=== PATIENT | male | born 1950 | race Caucasian/White ===

== ENCOUNTER 2025-02-11 08:54 | Emergency (ER) | payer MEDICARE, OTHER, SELFPAY ==
[2025-02-11] VITALS (17 sets, daily range): BP systolic 133–154; BP diastolic 76–89; PULSE 58–70; RESP 14–21; TEMP 36.2; O2SAT 95–99; BMI 31.0
--- OUTSIDE RECORDS SUMMARY | 2025-02-11 08:57 | XMS_ITS | Clinical Summary ---
Author Organization [facility] Address [address] [place] [id number] Care Team Providers Care Community Relations Assistant Name Role Phone Alpa Lester MD Primary Care Provider Allergies No known active allergies Medications vitamin e 400 unit capsule Take 1 capsule by mouth once daily. 0 012 Active vitamin B complex (B-COMPLEX VITAMIN) tablet Take 1 tablet by mouth once daily. Active cholecalciferol (VITAMIN D3) 2,000 unit capsule Take 1 capsule by mouth once daily. 017 Active aspirin (ECOTRIN) 81 mg enteric coated tablet Take 1 tablet by mouth once daily with a meal. 0 017 Active varenicline (CHANTIX) 1 mg tabletIndication s:Tobacco abuse Take 1 mg by mouth two times daily with meals. 180 Tablet 023 Active indomethacin (INDOCIN) 50 mg capsuleIndicatio ns:Gout, unspecified cause, unspecified chronicity, unspecified site TAKE ONE CAPSULE BY MOUTH THREE TIMES DAILY WITH MEALS NEEDED FOR GOUT. 30 Capsule 1 024 Active lisinopriL (PRINIVIL; ZESTRIL) 20 mg tabletIndication s:Hypertension, unspecified type TAKE ONE TABLET BY MOUTH ONE TIME DAILY 90 Tablet 3 024 Active atenoloL (TENORMIN) 50 mg tabletIndication s:Hypertension, unspecified type Take 1 tablet (50mg) in the morning and 1/2 tablet (25mg) in the evening 135 Tablet 3 024 Active tirzepatide (Mounjaro) 2.5 mg/0.5 mL penIndications:O besity (BMI 30-39.9) Inject 2.5 mg subcutaneous once weekly. 2 mL 024 Active tirzepatide (Mounjaro) 5 mg/0.5 mL penIndications:O besity (BMI 30-39.9) Inject 5 mg subcutaneous once weekly. 2 mL 024 Active tirzepatide (Mounjaro) 7.5 mg/0.5 mL penIndications:O besity (BMI 30-39.9) Inject 7.5 mg subcutaneous once weekly. 2 mL 024 Active pen tirzepatide (Mounjaro) 10 mg/0.5 mL penIndications:O besity (BMI 30-39.9) Inject 10 mg subcutaneous once weekly. 2 mL 024 Active tirzepatide (Mounjaro) 12.5 mg/0.5 mL penIndications:O besity (BMI 30-39.9) Inject 12.5 mg subcutaneous once weekly. 2 mL 024 Active tirzepatide (Mounjaro) 15 mg/0.5 mL penIndications:O besity (BMI 30-39.9) Inject 15 mg subcutaneous once weekly. 2 mL 024 Active pregabalin (LYRICA) 100 mg capsuleIndicatio ns:Peripheral sensory neuropathy TAKE ONE CAPSULE BY MOUTH TWICE DAILY 180 Capsule 1 024 Active traZODone (DESYREL) 50 mg tabletIndication s:Insomnia, idiopathic TAKE ONE OR TWO TABLETS BY MOUTH AT BEDTIME 180 Tablet 024 Active pregabalin (LYRICA) 150 mg capsuleIndicatio ns:Peripheral sensory neuropathy TAKE ONE CAPSULE BY MOUTH TWICE DAILY 180 Capsule 1 024 Active atorvastatin 20 mg tabletIndication s:Elevated triglycerides with high cholesterol TAKE ONE TABLET BY MOUTH AT BEDTIME 90 Tablet 025 Active allopurinoL 300 mg tabletIndication s:Gout, unspecified cause, unspecified chronicity, unspecified site TAKE ONE TABLET BY MOUTH ONE TIME DAILY 90 Tablet 025 Active famotidine 20 mg tabletIndication s:Chronic GERD TAKE ONE TABLET BY MOUTH TWICE DAILY 180 Tablet 025 Active tamsulosin 0.4 mg capsuleIndicatio ns:Elevated triglycerides with high cholesterol Take 1 Capsule (0.4 mg) by mouth once daily after a meal 90 Capsule 025 Active tamsulosin (FLOMAX) 0.4 mg capsuleIndicatio ns:Elevated triglycerides with high cholesterol Take 1 Capsule (0.4 mg) by mouth once daily after a meal 90 Capsule 3 024 2024 Discontinued famotidine (PEPCID) 20 mg tabletIndication s:Chronic GERD TAKE ONE TABLET BY MOUTH TWICE DAILY 180 Tablet 3 024 2024 Discontinued allopurinoL (ZYLOPRIM) 300 mg tabletIndication s:Gout, unspecified cause, unspecified chronicity, unspecified site Take 1 Tablet (300 mg) by mouth once daily. 90 Tablet 3 024 2024 Discontinued atorvastatin (LIPITOR) 20 mg tabletIndication s:Elevated triglycerides with high cholesterol Take 1 Tablet (20 mg) by mouth at bedtime. 90 Tablet 3 024 2024 Discontinued Active Problems Problem Noted Date Diagnosed Date Abdominal aortic aneurysm, without rupture 12/01 BPH without urinary obstruction 12/01/2021 Stage 3a chronic kidney disease 12/01/2021 s/p ablation for afib 11/04/2015 12/16/2015 Gout, unspecified 03/16/2011 Diverticulosis of colon (without mention of hemo rrhage) 01/15/2009 Overview (01/15/2009): Colonoscopy 12/2008 diverticulosis repeat in 10 years Essential hypertension 08/27/2008 Overview (01/05/2010): Updated by system to replace inactive record Elevated triglycerides with high cholesterol Impaired fasting glucose Resolved Problems Problem Noted Date Diagnosed Date Resolved Date Screening for AAA (abdominal aortic aneurysm) 08/26/20 21 12/01/2021 Chronic atrial fibrillation 11/04/2015 12/01/2021 Tobacco use disorder 04/29/2014 016 Encounters Date Type Department Care Team Description 02/04/2025 4:00 PM CDT Ancillary Procedure [facility] [address] [place] [address] 02/04/2025 Travel 01/11/2025 Refill [facility] [address] [place] [address] Alpa Lester MD Refill Request (Atorvastatin, Allopurinol, Famotidine, Tamsulosin) 01/08/2025 Telephone [facility] [address] [place] [address] Alpa Lester MD Imaging from Last 3 Months Immunizations Immunization Administration Dates Next Due COVID-19 vaccine ([place] 30mcg/0.3mL) PF, MDV 01/15/2021,12/25/2020 Influenza, High-dose Quadriv alent Inactivated 08/26/2022 Influenza, IIV3 (Age >=3 years) 08/16/2015,08/07,08/08/2013 Influenza, IIV4 07/13/2016 Influenza, IIV4 (=>6mos) MDV 07/16/2020 Influenza, Inactivated IIV3 (Age 65+ Years) Preserv Free 08/26/2019,08/22/2018,06/22/2017 Pneumococcal Poly,23-Valent (Pneumovax) 08/26/20 19,04/29/2014 Pneumococcal conj 13-Valent (Prevnar 13) 017 Td (Age >=7 Years) 10/23/2003 Tdap 04/29/2014 Zoster (Zostavax-ZVL, live) 05/19/2013 Family History Medical History Relation Name Comments Heart Disease Brother 1 CABG about 50' s Other Brother 2 at 62 Cancer-prostate Father approx age 7 9 Heart Disease Mother [place] at 62 Cancer-colon Neg. 1 Diabetes Neg. 2 Stroke Neg. 3 Cancer Sister around 68 Anesthesia Problem No Family History Relation Name Status Comments Brother 1 Brother 2 Alive Father Mother Neg. 1 Neg. 2 Neg. 3 Sister Alive Social History Tobacco Use Types Packs/Day Years Used Date Smoking Tobacco: Former Cigarettes 1 40 0 10/23/1975 - 10/23/2015 Smokeless Tobacco: Never Tobacco Cessation:Counseling Given: No Alcohol Use Standard Drinks/Week Comments Yes 0 (1 standard drink = 0.6 oz pur e alcohol) moderate PHQ-2 Answer Date Recorded PHQ-2 TOTAL SCORE 0 02/15/2024 Social Connections Answer Date Recorded Do you often feel lonely or isolated from those around you? 0 08/21/2023 Financial Resource Strain Answer Date R ecorded Difficulty of Paying Living Expenses 3 08/21/2023 Difficulty of Paying Living Expenses Not on file 08/21/2023 Food Insecurity Answer Date Recorded Do you worry your food will run out before you are able to buy more? 1 08/21/2023 Transportation Needs Answer Date Record ed Does lack of transportation keep you from medica l appointments? 1 08/21/2023 Does lack of transportation keep you from work, meetings or getting things that you need? 1 08/21/2023 Housing Stability Answer Date Recorded What is your housing situation today? 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 Gender Identity Not on file Sexual Orientation Not on file Obstetrics History Last Filed Vital Signs Vital Sign Reading Time Taken Comments Blood Pressure 124/70 05/06/2024 3:19 PM CDT Pulse 52 05/06/2024 3:19 PM CDT Temperature 36.6 C (97.9 F) 04/14/2022 2:35 PM CDT Respiratory Rate 16 07/03/2018 10:1 7 AM CDT Oxygen Saturation 96% 05/06/2024 3:19 PM CDT Inhaled Oxygen Concentration - - Weight 110.4 kg (243 lb 6.4 oz) 05/06/2024 3:19 PM CDT Height 185.4 cm (6' 1) 02/15/2024 3:48 PM CDT Body Mass Index 32.11 02/15/2024 3:48 PM CDT Plan of Treatment Health Maintenance Due Date Last Done Comments Zoster (shingles) series for age 50+ (2 of 3) 07/14/2013 05/19/2013 Tetanus booster 04/29/2024 04/29/2014, 10/23/2003 COVID-19 vaccine series ( season) 2024 09/15/2021, 01/15/2021, 12/25/2020 BMI (ht and wt on same day) for age 18+ 02/14/2025 02/15/2024, 12/08/2022, 12/01/2021, Additional history exists Depression screening for age 12+ 02/14/2025 02/15/2024, 12/08/2022, 12/08/2022, Additional history exists Medicare Wellness for age 65+ 02/15/2025, 12/08/2022, 12/01/2021, Additional history exists Influenza Vaccine (Season Ended) 2025 07/16/2020, 08/26/2019, 08/22/2018, Additional history exists Low Dose CT (for lung CA) ag e 50-80 02/04/2026 02/04/2025, 12/22/2023, 12/20/2022 RSV vaccine for adults or (1 - 1-dose 75+ series) 2026 Lipids for age 45-75 02/14/2029 02/15/2024, 12/08/2022, 10/05/2021, Additional history exists Colonoscopy through age 75 07/07/203107/07, 07/07/2021, 01/15/2009 Tdap Completed 04/29/2014 Hepatitis C screening for ag e 18-79 Completed 05/01/2014 Pneumococcal series for age 50+ Completed 08/26/2019, 06/22/2017, 04/29/2014 AAA screening age 65-74 Completed 12/27/19 23, 12/20/2022, 08/23/2021 Procedures Procedure Name Priority Date/Time Associated Diagnosis Comments CT CHEST SCREENING LOW DOSE WO CONTRAST Routine 02/04/2025 4:15 PM CDT Encounter for screening for lung cancer Former smoker LIPID PANEL W REFLEX MEASURED LDL Routine 02/15/2024 4:41 PM CDT Hyperlipidemia, unspecified hyperlipidemia type US AORTA ILIACS IVC WITH DUPLEX Routine 12/26/2022 10:39 AM 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 Lung-RADS CATEGORY 2: BENIGN APPEARANCE OR BEHAVIOR: Continue annual screening with low-dose chest CT in 12 months. Please note that all CT scans at this facility use dose modulation, iterative reconstruction and/or weight-based dosing when appropriate to reduce radiation dose to as low as reasonably achievable. Dictated by: Jim Lind MD @02/06/2025 5:48:50 AM/CRL:malia Narrative 02/06/2025 7:40 AM CDT For Patients: As a result of the Century Cures Act, medical imaging exams and procedure reports are released immediately into your electronic medical record. You may view this report before your referring provider. If you have questions, please contact your health care provider. CT CHEST SCREENING LOW DOSE WITHOUT CONTRAST, 02/04/2025 INDICATION: Lung cancer screening. Significant smoking history. TECHNIQUE: Low-dose volumetric helical scanning of the thorax was performed without IV contrast material. Coronal and sagittal reconstructions were obtained. COMPARISON: Low-dose chest CT of 12/22/2023. FINDINGS: No new or enlarged pulmonary nodule is identified. Pre-existing micronodules are unchanged and benign. The lungs are clear. There is no significant airway abnormality. No pleural effusion is demonstrated. There is no mediastinal or hilar lymph adenopathy. The heart size is normal. Calcified coronary arterial plaque is demonstrated. Images of the upper abdomen are unremarkable. us Alpa Lester MD CT Final Result * (ABNORMAL) LIPID PANEL W REFLEX MEASURED LDL (02/15/2024 4:41 PM CDT) CHOLESTEROL,TOTAL 116 100 - 199 mg/dL 02/16/2024 2:15 PM CDT [facility] Comment: Cholesterol, Total Reference Ranges Desirable <200 mg/dL Borderline 200-239 mg/dL High >=240 mg/dL TRIGLYCERIDES 220(H) <150 mg/dL 02/16/2024 2:15 PM CDT [facility] HDL CHOLESTEROL 40(L) >40 mg/dL 2:15 PM CDT [facility] NON-HDL CHOLESTEROL 76 <145 mg/dl 02/16/2024 2:15 PM CDT [facility] CHOL/HDL RATIO 2.90 <4.50 02/16/2024 2:15 PM CDT [facility] LDL CHOLESTEROL 32 <=130 mg/dL 02/16/2024 2:15 PM CDT [facility] VLDL CHOLESTEROL 44(H) <=30 mg/dL 02/16/2024 2:15 PM CDT [facility] PROVIDER ORDERED STATUS RANDOM 02/16/2024 2:15 PM CDT [facility] Blood BLOOD SPECIMEN / Unknown Venipuncture / Unknown 02/15/2024 4:41 PM CDT 02/15/2024 4:42 PM CDT us Alpa Lester MD CHEMISTRY Final Result Performing Organization Address City/State/[facility] Co de Phone Number [facility] [address] [place] [id number], [place] * US AORTA ILIACS IVC WITH DUPLEX (12/26/2022 10:39 AM ENTERPRISE SERVICES MANAGER) Anatomical Region Laterality Modality AORTA, Abdomen Ultrasound 12/26/2022 9:58 AM ENTERPRISE SERVICES MANAGER Narrative 12/26/2022 2:01 PM ENTERPRISE SERVICES MANAGER VASCULAR ULTRASOUND REPORT RODNEY YU : 1950 Study Date: 12/26/2022 9:58:00 AM Age: 72 years Tech: PMK Gender: M Referring MD: ALPA LESTER Site: [facility] Study performed: Aorta Indication for study: Follow-up known AAA. Study Quality: Good TECHNIQUE: The abdominal aorta and iliac arteries were examined with duplex ultrasound, color-flow and spectral Doppler. Bypass grafts and/or stents if present are evaluated per exam protocol. Vessel size, peak systolic velocity (PSV) and velocity ratios if applicable, were obtained and documented at sites per exam protocol. IMPRESSION: 1. Aorta is diffusely calcified which limits evaluation. 2. Infrarenal abdominal aortic aneurysm measuring 4 x 4.3 cm, previously 4.3 x 3.8 cm on CTA dated December 20, 2022. This difference is likely secondary to differences in technique given the short interval. 3. Ectasia of the right common iliac artery measuring 1.9 x 1.9 cm. COMPARISON: Compared to prior study 12-20-22, CTA 4.3x3.8cm. FINDINGS: Aorta is diffusely calcified. Abnormal right common iliac. Ectatic right DAREN 1.9x1.9cm Dst left DAREN and prox EIA obscured by gas. MEASUREMENTS: + +--------+-------+ +---------+ TRV (cm) AP (cm) PSV (cm/s) Phasicity + +--------+-------+ +---------+ Suprarenal aorta 2.80 2.91 91 triphasic + +--------+-------+ +---------+ Juxtarenal aorta 2.21 2.32 84 biphasic + +--------+-------+ +---------+ Infrarenal aorta 3.99 4.33 37 triphasic + +--------+-------+ +---------+ Right common iliac 1.87 1.89 39 triphasic + +--------+-------+ +---------+ Left common iliac 1.35 1.13 122 biphasic + +--------+-------+ +---------+ Elizabeth Rubalcava MD. [employer] Electronically signed on 12/26/2022 2:01:15 PM This study was performed and interpreted by a service accredited by the Intersocietal Accreditation Commission (IAC/Vascular), www.intersocietal.org/vascular Report generated by [facility]. Final Procedure Note Elizabeth Rubalcava MD - 12/26/2022 VASCULAR ULTRASOUND REPORT RODNEY YU : 1950 Study Date: 12/26/2022 9:58:00 AM Age: 72 years Tech: PMK Gender: M Referring MD: ALPA LESTER Site: [facility] Study performed: Aorta Indication for study: Follow-up known AAA. Study Quality: Good TECHNIQUE: The abdominal aorta and iliac arteries were examined with duplexultrasound, color-flow and spectral Doppler. Bypass grafts and/or stentsif present are evaluated per exam protocol. Vessel size, peak systolicvelocity (PSV) and velocity ratios if applicable, were obtained anddocumented at sites per exam protocol. IMPRESSION: 1. Aorta is diffusely calcified which limits evaluation. 2. Infrarenal abdominal aortic aneurysm measuring 4 x 4.3 cm, previously4.3 x 3.8 cm on CTA dated December 20, 2022. This difference is likelysecondary to differences in technique given the short interval. 3. Ectasia of the right common iliac artery measuring 1.9 x 1.9 cm. COMPARISON: Compared to prior study 12-20-22, CTA 4.3x3.8cm. FINDINGS: Aorta is diffusely calcified. Abnormal right common iliac. Ectatic rightCIA 1.9x1.9cm Dst left DAREN and prox EIA obscured by gas. MEASUREMENTS: + +--------+-------+ +---------+ TRV (cm) AP (cm) PSV (cm/s) Phasicity + +--------+-------+ +---------+ Suprarenal aorta 2.80 2.91 91 triphasic + +--------+-------+ +---------+ Juxtarenal aorta 2.21 2.32 84 biphasic + +--------+-------+ +---------+ Infrarenal aorta 3.99 4.33 37 triphasic + +--------+-------+ +---------+ Right common iliac 1.87 1.89 39 triphasic + +--------+-------+ +---------+ Left common iliac 1.35 1.13 122 biphasic + +--------+-------+ +---------+ Elizabeth Rubalcava MD. [employer] Electronically signed on 12/26/2022 2:01:15 PM This study was performed and interpreted by a service accredited by theIntersocietal Accreditation Commission (IAC/Vascular),www.intersocietal.org/vascular Report generated by [facility]. Final us Alpa Lester MD Final Result * COLONOSCOPY (07/07/2021 10:23 AM CDT) 07/07/2021 10:2 3 AM CDT Narrative Transcriptions Jeovanny Mckeon MD - 07/07/2021 11:16 AM CDT Patient Name: Rodney Yu Procedure Date: 07/07/2021 Gender: Male Date of : 1950 Admit Type: Outpatient Procedure: Colonoscopy Proceduralist: Jeovanny Mckeon MD , Perlita Owens (Nurse) Indications/Pre-Op Diagnosis: Screening for colorectal malignant neoplasm, Last colonoscopy: December 2008 Medications: Fentanyl 100 micrograms IV, Midazolam 4 mgIV, The level of sedation administered wasmoderate Procedure Description: The patient had risks, benefits and alternatives explained to andgave informed consent. The patient had a stable cardiopulmonary status and judged an adequate candidate for conscious sedation. The Colonoscope was passed through the anus and advanced to thececum, identified by appendiceal orifice and ileocecal valve. Thecolonoscopy was performed without difficulty. The patient tolerated the procedure well. The quality of the bowel preparation was not adequate toidentify polyps 6 mm and larger in size. The ileocecal valve, appendiceal orifice, and rectum were photographed. Complications: No immediate complications. Estimated Blood Loss & Specimen: Estimated blood loss: none. Specimen collected - None Findings: The perianal and digital rectal examinations were normal. A large amount of solid stool was found in the entire colon,precluding visualization. Lavage of the area was performed using a large amountof sterile water, resulting in incomplete clearance with continued poor visualization. Scattered small and large-mouthed diverticula were found in theentire colon. The exam was otherwise without abnormality. Impressions/Post-Op Diagnosis: - Preparation of the colon was inadequate. - Stool in the entire examined colon. - Moderate diverticulosis in the entire examined colon. - The examination was otherwise normal. - No specimens collected. Recommendation: - Patient has a contact number available for emergencies. The signsand symptoms of potential delayed complications were discussed with the patient. Return to normal activities tomorrow. Written discharge instructions were provided to the patient. - Resume previous diet. - Continue present medications. - Repeat colonoscopy at appointment to be scheduled because the bowel preparation was suboptimal. - For future colonoscopy the patient will require an extended preparation, Peg 8L. If there are any questions, please contact the electronics engineer. Moderate Sedation: Moderate (conscious) sedation was administered by the endoscopy nurse and supervised by the endoscopist. The following parameters were monitored: oxygen saturation, heart rate, respiratory rate, blood pressure, adequacy of pulmonary ventilation and reponse to care. Please refer to the patient's medical record flowsheets and nursing notes for moderate sedation details. Total physician intraservice time was 17 minutes. Jeovanny Mckeon MD 07/07/2021 11:16:22 AM This report has been signed electronically. Note Initiated On: 07/07/2021 10:23 AM Procedure Code(s): --- Professional --- 40477, Colonoscopy, flexible; diagnostic, including collection of specimen(s) bybrushing or washing, when performed (separateprocedure) Diagnosis Code(s): --- Professional --- Z12.11, Encounter for screening formalignant neoplasm of colon K57.30, Diverticulosis of large intestine without perforation or abscess withoutbleeding CPT copyright 2020 [employer]. All rights reserved. The codes documented in this report are preliminary and upon certified medical records coder reviewmay be revised to meet current compliance requirements. Scope In: 10:54:29 AM Scope Withdrawal Time 0 hours 7 minutes 4 seconds Scope Out: 11:09:34 AM us Jeovanny Mckeon MD PROCEDURE ORD Final Res ult * ANTI HCV [41810.2] (05/01/2014 7:15 AM CDT) HEPATITIS C ANTIBODY Non-Reacti ve Non-Reacti ve 05/01/2014 3:28 PM CDT [facility] Blood specimen (specimen) BLOOD SPECIMEN / Unknown Venipuncture / Unknown 05/01/2014 7:15 AM CDT 05/01/2014 7:15 AM CDT Narrative [facility] - 05/01/2014 3:28 PM CDT Antibodies to HCV not detected; does not exclude the possibility of exposure to HCV. us Alpa Lester MD SEND OUTS Final Result [facility] [address] [place] [address], from Last 3 Months or Most Recently Relevant to Health Maintenance Insurance [employer] MR PB ONLY MEDICARE PART B HB ONLY MEDICA PRIME SOLUTION HB MEDICARE PART A HB ONLY Advance Directives Documents on File Type Date Recorded Patient Educational Paraprofessional Expl anation Healthcare Directive 05/07/2024 11:12 AM * Full Code (Latest Code Status on File) Date Activated Date Inactivated Comments 12/23/2015 7:04 AM 12/23/2015 12:23 PM * Full Code Date Activated Date Inactivated Comments 11/04/2015 8:11 AM 11/05/2015 12:19 PM * Full Code Date Activated Date Inactivated Comments 07/06/2015 7:09 AM 07/06/2015 2:52 PM Care Teams Community Relations Assistant Relationship Specialty Start Date End Date Alpa Lester MD [address] [place] [address] [facility] - General 04/11/06
--- OUTSIDE RECORDS SUMMARY | 2025-02-11 08:57 | XMS_ITS | Clinical Summary ---
Author Organization [facility] Address [address] , [address] [place] [address] Phone Care Team Providers Care Behavioral Health Professional Name Role Phone Brittany Yu Unavailable Conditions or Problems Problem Name Problem Code Onset Date Status Entry Date Provider Comment Standard Description Annotate VERTIGO 388337086 (SNOMED CT) Resolved Alex High MD Vertigo Neuropathic pain 247816844 (SNOMED CT) Active Alex High MD Neuropathic pain Neuropathy 211913217 (SNOMED CT) Active Alex High MD Neuropathy VERTIGO, BENIGN PAROXYSMAL POSITION 102233857 (SNOMED CT) Active Charanjit Roach MD Benign paroxysmal positional vertigo HEARING LOSS, NOS 62052456 (SNOMED CT) Active Charanjit Roach MD Hearing loss VERTIGO 418420506 (SNOMED CT) Removed Charanjit Roach MD Vertigo Medications Medication Instructions Start Date Stop Date Generic Name [facility] Provider NORTRIPTYLINE HCL 10 MG CAPS 2 capsule by mouth as directed : 2 caps or 20 mg per night; then increase by 1 cap or 10 mg/night every 2 weeks until maximum 7 caps or 70 mg/night or until pain controlled 12/10 nortriptyline [id number] Alex High MD NORTRIPTYLINE HCL 10 MG CAPS Take 6 capsule by mouth every night at bedtime maximum 7 caps or 70 mg/night nortriptyline 32838854918 Alex High MD VARENICLINE TARTRATE 1 MG TABS Take 1 mg by mouth twice a day 0 varenicline 18085021603 Alex High MD MOUNJARO 7.5 MG/0.5ML SOAJ Inject 7.5 mg subcutaneously once a week 0 tirzepatide 47104878890 Alex High MD ALLOPURINOL 300 MG TABS Take 1 tablet by mouth once a day allopurinol 31511017564 Alex High MD vitamin e 400 unit capsule Take 1 capsule by mouth once a day 0 vitamin e 400 unit capsule Alex High MD vitamin B complex (B-COMPLEX VITAMIN) tablet Take 1 tablet by mouth once a day B-COMPLEX VITAMIN Alex High MD MOUNJARO 2.5 MG/0.5ML SOAJ Inject 2.5 mg subcutaneously once a week 0 tirzepatide 08247617469 Alex High MD MOUNJARO 10 MG/0.5ML SOAJ Inject 10 mg subcutaneously once a week 0 tirzepatide 40275585107 Alex High MD TAMSULOSIN HCL 0.4 MG CAPS Take 1 capsule by mouth once a day tamsulosin 84568642631 Alex High MD LISINOPRIL 20 MG TABS Take 1 tablet by mouth once a day lisinopril 82984362803 Alex High MD MOUNJARO 5 MG/0.5ML SOAJ Inject 5 mg subcutaneously once a week 0 tirzepatide 48144589144 Alex High MD regadenoson (LEXISCAN) injection 0.4 mg 0.4 mg intravenously LEXISCAN Alex High MD ASPIRIN LOW DOSE 81 MG TBEC Take 1 tablet by mouth once a day aspirin 16611685255 Alex High MD INDOMETHACIN 50 MG CAPS Take 1 capsule by mouth three times a day as needed 0/09 indomethacin 03386704712 Alex High MD FAMOTIDINE 20 MG TABS Take 1 tablet by mouth twice a day famotidine 02225176034 Alex High MD ATORVASTATIN CALCIUM 20 MG TABS Take 1 tablet by mouth every night atorvastatin 16331426435 Alex High MD MECLIZINE HCL (MECLIZINE HCL) 25 MG TABS twice a day as needed 0 MECLIZINE HCL Alex High MD PREGABALIN 150 MG CAPS Take 1 capsule by mouth twice a day pregabalin 83744153336 Alex High MD MOUNJARO 15 MG/0.5ML SOAJ Inject 15 mg subcutaneously once a week 0/ tirzepatide 10351482293 Alex High MD PREGABALIN 100 MG CAPS Take 1 capsule by mouth twice a day 0 pregabalin 31920334329 Alex High MD cholecalciferol (VITAMIN D3) 2,000 unit capsule Take 1 capsule by mouth once a day VITAMIN D3 Alex High MD MOUNJARO 12.5 MG/0.5ML SOAJ Inject 12.5 mg subcutaneously once a week 0/09 tirzepatide 84842662326 Alex High MD ALPHA-LIPOIC ACID 600 MG TABS 1/2 tablet by mouth twice a day alpha lipoic acid 41557306259 Alex High MD PREGABALIN 100 MG CAPS Take 1 capsule by mouth every night at bedtime as needed for pain at night with the current 150 mg 2x per day pregabalin 15054358358 Alex High MD NORTRIPTYLINE HCL 10 MG CAPS 2 capsule by mouth as directed : 2 caps or 20 mg per night; then increase by 1 cap or 10 mg/night every 2 weeks until maximum 7 caps or 70 mg/night or until pain controlled 12/10 nortriptyline 78081772984 Alex High MD vitamin e 400 unit capsule Take 1 capsule by mouth once daily. vitamin e 400 unit capsule QIEUSER QIEUSER vitamin B complex (B-COMPLEX VITAMIN) tablet Take 1 tablet by mouth once daily. B-COMPLEX VITAMIN QIEUSER QIEUSER VARENICLINE TARTRATE 1 MG TABS Take 1 mg by mouth two times daily with meals. 0 varenicline 67908855183 QIEUSER QIEUSER TRAZODONE HCL 50 MG TABS TAKE ONE OR TWO TABLETS BY MOUTH AT BEDTIME trazodone 31512668444 QIEUSER QIEUSER MOUNJARO 7.5 MG/0.5ML SOAJ Inject 7.5 mg subcutaneous once weekly. 11/28 tirzepatide 28806043401 QIEUSER QIEUSER MOUNJARO 5 MG/0.5ML SOAJ Inject 5 mg subcutaneous once weekly. 11/28 tirzepatide 59813548064 QIEUSER QIEUSER MOUNJARO 2.5 MG/0.5ML SOAJ Inject 2.5 mg subcutaneous once weekly. 2 tirzepatide 21415754823 QIEUSER QIEUSER MOUNJARO 15 MG/0.5ML SOAJ Inject 15 mg subcutaneous once weekly. 11/28 tirzepatide 18079743979 QIEUSER QIEUSER MOUNJARO 12.5 MG/0.5ML SOAJ Inject 12.5 mg subcutaneous once weekly. 11/28 tirzepatide 90891395651 QIEUSER QIEUSER TAMSULOSIN HCL 0.4 MG CAPS Take 1 Capsule (0.4 mg) by mouth once daily after a meal 0 tamsulosin 65026240721 QIEUSER QIEUSER regadenoson (LEXISCAN) injection 0.4 mg 0.4 mg Intravenous LEXISCAN QIEUSER QIEUSER PREGABALIN 150 MG CAPS Take 1 Capsule (150 mg) by mouth two times daily. 0/ pregabalin 20739878717 QIEUSER QIEUSER PREGABALIN 100 MG CAPS TAKE ONE CAPSULE BY MOUTH TWICE DAILY 0/ pregabalin 22781747685 QIEUSER QIEUSER MOUNJARO 10 MG/0.5ML SOAJ Inject 10 mg subcutaneous once weekly. 2/06 tirzepatide 66244433406 QIEUSER QIEUSER LISINOPRIL 20 MG TABS TAKE ONE TABLET BY MOUTH ONE TIME DAILY 0 lisinopril 70164105718 QIEUSER QIEUSER INDOMETHACIN 50 MG CAPS TAKE ONE CAPSULE BY MOUTH THREE TIMES DAILY WITH MEALS NEEDED FOR GOUT. 0/ indomethacin 02439781393 QIEUSER QIEUSER FAMOTIDINE 20 MG TABS TAKE ONE TABLET BY MOUTH TWICE DAILY 0/09 famotidine 73945580600 QIEUSER QIEUSER cholecalciferol (VITAMIN D3) 2,000 unit capsule Take 1 capsule by mouth once daily. 0/09 VITAMIN D3 QIEUSER QIEUSER ATORVASTATIN CALCIUM 20 MG TABS Take 1 Tablet (20 mg) by mouth at bedtime. 0/09 atorvastatin 04492033283 QIEUSER QIEUSER ATENOLOL 50 MG TABS Take 1 tablet (50mg) in the morning and 1/2 tablet (25mg) in the evening atenolol 03219171580 QIEUSER QIEUSER ASPIRIN LOW DOSE 81 MG TBEC Take 1 tablet by mouth once daily with a meal. 0/09 aspirin 62545143464 QIEUSER QIEUSER ALLOPURINOL 300 MG TABS Take 1 Tablet (300 mg) by mouth once daily. 0/09 allopurinol 76188635586 QIEUSER QIEUSER MECLIZINE HCL 25 MG TABS bid prn 0/09 MECLIZINE HCL 48105356252 Charanjit Roach MD Medications Administered No information available. Allergies, Adverse Reactions, Alerts Allergy Name Reaction Description Start Date Severity Statu s Provider No known active allergies No known active allergies Mild Active Reza Bedolla Results Date Name Value Unit Range Flag Description Internal Other: Verbal Autho rization/Emergency Contact - OBS VERBAL_EMER Done Verbal au thorization and emergency contact Internal Other: Authorizatio n - OBS [email or web address] Yes Authoriza tion: Release of Information - Authorize [facility] - Payment and Healthcare Operations ROIAUTHOTHER Yes Authoriz ation: Release of Information - Authorize Others/Insurance - Payment and Healthcare Operations HIECONSENT Yes Consent To Release information to the Health Information Exchange (HIE) [email or web address] Yes Authorizat ion: Authorization for [facility] to leave messages, voicemail, send text messages, send emails AUTHRELHCARE Yes Authoriz ation: Release/Retrieval of Information to/from Healthcare Facilities, Pharmacy Benefit Payers and Providers AUTHPRIVPRAC Yes Authoriz ation: Notice of privacy practices AUTHBENEFIT Yes Authoriza tion: Assignment of Benefits and Payment Agreement Office Visit: Office Visit f ax MEDS REVIEW Done Documenta tion of current medications (procedure) Plan of Care Type Date Detail Appointment 03:00 PM Ellie Vann PA-C, [address] [facility], [address], [place], [address], Pending order Follow up with N eurologist or [facility] Pending order Follow up with N eurologist or [facility] Pending order Follow up with N eurologist or [facility] Pending order Immunofixation S matteo w/Electrophoresis Pending order Vitamin B12 Pending order Methylmalonic Ac id Serum (MMA) Pending order Vitamin B6 (Pyri doxine) - fasting after midnight Pending order Patient Instruct ions Pending order Follow up with N eurologist or [facility] Pending order EMG bilateral lo w ext Pending order EMG bilateral lo w ext Pending Order exclud ed from report: Pending order Patient Instruct ions Pending order Patient Instruct ions Procedures Code Procedure Name Date Entry Date ORDERS Patient Instructions ORDERS EMG bilateral low ext CPT-44439 Nerve Conduction 7-8 studies CPT-90811 EMG with NCS (5+ muscles) - 1 limb CPT-99284 EMG with NCS (4 or fewer muscles) - 1 lopez b ORDERS Patient Instructions [facility]-[id number] Documentation of current medicatio ns Vital Signs Date Name Value Unit Description Heart Rate 68 /min pulse rate Immunizations No information available. Advance Directives No information available.
--- OUTSIDE RECORDS SUMMARY | 2025-02-11 08:57 | XMS_ITS ---
Author Organization [facility] Address [address] [place] [address] , [address] [place] [address] Phone Care Team Providers Care White Lead Filterer Name Role Phone Soo DORMAN, Ellie Myers Unavailable Conditions or Problems No information available. Medications No information available. Medications Administered No information available. Allergies, Adverse Reactions, Alerts No information available. Results Date Name Value Unit Range Flag Description Office Visit: Office Visit f ax MEDS REVIEW Done Documenta tion of current medications (procedure) Plan of Care Type Date Detail Appointment 03:00 PM Ellie Vann PA-C, [address] [facility], [address], [place], [address], Pending order Follow up with N eurologist or [facility] Pending order Follow up with N eurologist or [facility] Pending order Immunofixation S matteo w/Electrophoresis Pending order Vitamin B12 Pending order Methylmalonic Ac id Serum (MMA) Pending order Vitamin B6 (Pyri doxine) - fasting after midnight Pending order Patient Instruct ions Procedures Code Procedure Name Date Entry Date ORDERS Patient Instructions Vital Signs No information available. Immunizations No information available. Advance Directives No information available.
--- NOTE | 2025-02-11 09:15 | CRLHL7_ITS ---
For Patients: As a result of the Cures Act, medical imaging exams and procedure reports are released immediately into your electronic medical record. You may view this report before your referring provider. If you have questions, please contact your health care provider. INDICATION : Chest pain TECHNIQUE : 2View chest IMPRESSION : No overall change allowing for technique from a prior exam April 2015. Mildly prominent lung markings. These are likely stable and accentuated by technique. Normal heart size and vascular pattern. Mild increased central perihilar bronchial thickening is present. This can be seen in the setting of chronic reactive airway disease No consolidation or pleural fluid, no signs of a pneumothorax. Overlying electrocardiographic monitor leads. Dictated by Casey Bradford MD @ 02/11/2025 9:47:39 AM (Electronically Signed)
--- NOTE | 2025-02-11 09:15 | ED_ITS ---
HPI - Chest Pain General Date Seen: 02/11/25 Chief Complaint: Chest Pain Stated Complaint: chest pains Time Seen by Provider: 02/11/25 08:57 Source: patient Mode of arrival: ambulatory Limitations: no limitations History of Present Illness HPI narrative: Patient is a 74-year-old male presenting to the emergency department for chest pain. He states he woke up this morning with this chest pain. His across his mid sternal region. Denies having pain like this before. States that the dull ache that is worse when takes a deep breath. States the dyspnea improves when he lays down and worse when he sits up for work. Does state he had pneumonia while he was in [place] 2 weeks ago. Noticed with some mild lower extremity swelling with left worse than right for the past 6 or so months. Has never had a blood clot before. No history of heart disease. Denies fevers, chills, headache, weakness, numbness, abdominal pain, nausea. Does state he feels slightly lightheaded like his eyes just want to fall sleep. Not aware of any sick contacts. Pain does not radiate to his arms or neck. No other concerns noted. Related Data Home Medications ?Medication ?Instructions ?Recorded ?Confirmed allopurinol 300 mg tablet 300 mg PO 08/24/22 08/24/22 aspirin 81 mg tablet,delayed 81 mg PO QDAY 08/24/22 08/24/22 release atenolol 50 mg tablet 50 mg PO 08/24/22 08/24/22 atorvastatin 20 mg tablet 20 mg PO 08/24/22 08/24/22 famotidine 20 mg tablet 20 mg PO 08/24/22 08/24/22 gabapentin 100 mg capsule 400 mg PO BID 08/24/22 02/11/25 lisinopril 20 mg tablet 20 mg PO 08/24/22 08/24/22 tamsulosin 0.4 mg capsule mg PO 08/24/22 08/24/22 trazodone 50 mg tablet 50 mg PO 08/24/22 08/24/22 Allergies Allergy/AdvReac Type Severity Reaction Status Date / Time No Known Drug Allergies Allergy Verified 08/24/22 13:41 Review of Systems Status of ROS Reports: 10 or more systems reviewed and unremarkable except as noted in History and below [facility] Medical History Hypertension ?I10 - Essential (primary) hypertension (ICD-10) Surgical History Hx of appendectomy ?Z90.49 - Acquired absence of other specified parts of digestive tract (ICD- 10) History of cholecystectomy ?Z90.49 - Acquired absence of other specified parts of digestive tract (ICD- 10) Social History Smoking Status: Former smoker How often do you have a drink containing alcohol: 2-3 times a week AUDIT-C Alcohol total score: 3 Non-prescribed substance use: denies use Exam Narrative Exam Narrative: Const: Well-nourished, Well-developed, in mild distress Eyes: PERRL, no conjunctival injection, and symmetrical lids HENT: Atraumatic external nose and ears. Moist mucous membranes. Neck: Symmetric, trachea midline, No thyromegaly. CVS: RRR, No murmurs or gallops. Peripheral pulses 2+ and equal in all extremities, maybe some slight lower extremity edema left worse than right RESP: Unlabored respiratory effort. Clear to auscultation bilaterally. GI: Nontender/Nondistended, No rebound or guarding. MSK:Extremities w/o deformity, Normal Active ROM, nontender chest Skin: Warm, Dry. No rashes or lesions. Neuro: Normal Muscle tone, No focal neurological deficits. Psych: Awake, Alert, & Oriented x3. Appropriate mood and affect. Const Vital Signs, click to edit/add: Vital Signs - 24 hr 02/11/25 08:58 02/11/25 09:28 02/11/25 09:30 Temperature 97.1 F L Pulse Rate 70 63 Pulse Rate [Pulse Oximeter] 64 Respiratory Rate 18 Blood Pressure Blood Pressure [Left Upper Arm] 134/83 Pulse Oximetry 97 96 97 Oxygen Delivery Method Room Air 02/11/25 09:32 02/11/25 10:00 02/11/25 10:01 Temperature Pulse Rate 59 L 60 60 Pulse Rate [Pulse Oximeter] Respiratory Rate 16 14 15 Blood Pressure 148/89 H 146/86 H Blood Pressure [Left Upper Arm] Pulse Oximetry 97 97 95 Oxygen Delivery Method 02/11/25 10:30 02/11/25 10:31 02/11/25 11:00 Temperature Pulse Rate 63 63 66 Pulse Rate [Pulse Oximeter] Respiratory Rate 21 20 Blood Pressure 133/76 Blood Pressure [Left Upper Arm] Pulse Oximetry 96 96 98 Oxygen Delivery Method 02/11/25 11:01 Temperature Pulse Rate 63 Pulse Rate [Pulse Oximeter] Respiratory Rate 17 Blood Pressure 150/82 H Blood Pressure [Left Upper Arm] Pulse Oximetry 98 Oxygen Delivery Method Course Vital Signs Vital signs: Initial Vital Signs Respiratory Effort Normal 02/11/25 08:55 Respiratory Depth Normal 02/11/25 08:55 Respiratory Pattern Normal 02/11/25 08:55 Vital Signs Temperature 97.1 F L 02/11/25 08:58 Pulse Rate 64 02/11/25 08:58 Respiratory Rate 18 02/11/25 08:58 Blood Pressure 134/83 02/11/25 08:58 Pulse Oximetry 97 02/11/25 08:58 Oxygen Delivery Method Room Air 02/11/25 08:58 Temperature 97.1 F L 02/11/25 08:58 Pulse Rate 63 02/11/25 11:01 Respiratory Rate 17 02/11/25 11:01 Blood Pressure 150/82 H 02/11/25 11:01 Pulse Oximetry 98 02/11/25 11:01 Oxygen Delivery Method Room Air 02/11/25 08:58 MDM - Chest Pain MDM Narrative Medical decision making narrative: Patient is a 74-year-old male presenting to emergency department for chest pain. The differential diagnosis of chest pain is broad and includes common etiologies such as musculoskeletal strain, GERD, pneumonia, etc. More serious etiologies considered include PE, coronary artery disease, pneumothorax, aortic dissection, aortic aneurysm. I am concerned about a PE considering the pain worsening with deep breaths. Will order D-dimer. Will also order EKG, troponin, CBC, BMP, magnesium, chest x-ray. Also help evaluate for pneumonia, CAD, pneumothorax. He otherwise appears stable and aortic dissection and aortic aneurysm seem very unlikely at this time. Symptoms were resolving throughout his time in the emergency department. Lab work shows no concerning findings. EKG shows no concerning findings. Repeat troponin was also within normal limits. Chest x-ray reviewed by myself the radiologist shows no concerning findings. He does state pain seems to be worse with movement. This does make me wonder if this an underlying musculoskeletal injury. He is otherwise doing well and is safe for discharge. I informed him to return if symptoms return and to follow-up his primary care provider if the chest pain seems to persist. Lab Data Labs: Lab Results 02/11/25 02/11/25 02/11/25 Range/Units 09:15 09:20 11:26 WBC 5.77 (4.50-11.00) K/uL RBC 4.51 (4.30-5.90) m/uL Hgb 13.8 (13.5-17.5) gm/dL Hct 40.6 (37.0-53.0) % MCV 90 (80-100) fL MCH 31 (26-34) pg MCHC 34 (32-36) gm/dL RDW Coeff of Griffin 14.3 (11.5-15.5) % Plt Count 182 (140-440) K/uL Neut % (Auto) 50.3 (42.0-72.0) % Lymph % (Auto) 35.5 (20-44) % Beau[place] % (Auto) 9.7 (0.0-11.0) % Eos % (Auto) 4.0 (0.0-7.0) % Baso % (Auto) 0.3 (0.0-3.0) % Neut # (Auto) 2.90 (1.7-7.0) K/uL Lymph # (Auto) 2.05 (0.90-2.90) K/uL [place] # (Auto) 0.60 (0.00-0.90) K/UL Eos # (Auto) 0.23 (0.00-0.50) K/uL Baso # (Auto) 0.02 (0.00-0.30) K/uL Abs Immat Gran (auto) 0.01 (0.00-0.30) K/uL Imm/Tot Granulo (auto) 0.2 % D-Dimer Quant (PE/DVT) 0.43 (0.00-0.50) ug/ml Sodium 138 (135-149) mmol/L Potassium 4.3 (3.6-5.1) mmol/L Chloride 103 (96-114) mmol/L Carbon Dioxide 25 (20-32) mmol/L Anion Gap 10 (7-15) mEq/L BUN 16 (7-30) mg/dL Creatinine 0.9 (0.5-1.5) mg/dL Estimated Creat Clear 74.35 Estimated GFR 90 ml/min Glucose 129 H (60-115) mg/dL Calcium 8.9 (8.4-10.6) mg/dL Magnesium 1.5 (1.5-2.6) mg/dL Troponin I < 0.01 < 0.01 (0.01-0.04) ng/mL SARS-CoV-2 (PCR) Negative SARS-CoV-2 (Negative) Influenza Type A (PCR) Negative PCR FLU A (Negative) Influenza Type B (PCR) Negative PCR FLU B (Negative) RSV (PCR) Negative PCR RSV (Negative) Imaging Data Chest x-ray: Radiologist's impression: No overall change allowing for technique from a prior exam April 2015. Mildly prominent lung markings. These are likely stable and accentuated by technique. Normal heart size and vascular pattern. Mild increased central perihilar bronchial thickening is present. This can be seen in the setting of chronic reactive airway disease No consolidation or pleural fluid, no signs of a pneumothorax. Overlying electrocardiographic monitor leads. Dictated by Casey Bradford MD @ 02/11/2025 9:47:39 AM ECG Data Attestation: I personally reviewed and interpreted this ECG as follows: Prior ECG tracings: not available for review Interpretation: Normal sinus rhythm with a rate of 72 beats per minute, normal intervals, normal axis, no ST or T-wave abnormalities. Discharge Plan Discharge Clinical Impression: Atypical chest pain Patient Disposition: Home, Self-Care Condition: Stable Instructions: Noncardiac Chest Pain (ED) Additional Instructions: At this time I do not see any acute concerning causes of your chest pain. I recommend following up with the primary care provider if the symptoms persist. If they get worse please return for re-evaluation. Prescriptions: No Action allopurinol 300 mg tablet 300 mg PO Patient Comments: TAKE ONE TABLET BY MOUTH ONE TIME DAILY famotidine 20 mg tablet 20 mg PO lisinopril 20 mg tablet 20 mg PO Patient Comments: TAKE ONE TABLET BY MOUTH ONE TIME DAILY tamsulosin 0.4 mg capsule PO Patient Comments: TAKE ONE CAPSULE BY MOUTH DAILY AFTER A MEAL atorvastatin 20 mg tablet 20 mg PO Patient Comments: TAKE ONE TABLET BY MOUTH AT BEDTIME trazodone 50 mg tablet 50 mg PO gabapentin 100 mg capsule 400 mg PO BID Patient Comments: TAKE 3 CAPSULES BY MOUTH IN THE MORNING AND TAKE 4 CAPSULES BY MOUTH IN THE EVENING atenolol 50 mg tablet 50 mg PO aspirin 81 mg tablet,delayed release (DR/EC) 81 mg PO QDAY Follow Up/Referrals: Chet Lester MD [Primary Care Provider] - Stand Alone Forms: Hemarina Info Instructions
[2025-02-11 09:28] LABS: Basophils Absolute Auto 0.02 K/uL (0.00-0.30); Basophils Percent Auto 0.3 % (0.0-3.0); Eosinophils Absolute Auto 0.23 K/uL (0.00-0.50); Hematocrit 40.6 % (37.0-53.0); Hemoglobin* 13.8 gm/dL (13.5-17.5); Immature Granulocytes Abs Auto 0.01 K/uL (0.00-0.30); Immature Granulocytes Pct Auto 0.2 %; Lymphocytes Absolute Auto 2.05 K/uL (0.90-2.90); Lymphocytes Percent Auto 35.5 % (20-44); Mean Corpuscular HGB Conc 34 gm/dL (32-36); Mean Corpuscular Hemoglobin 31 pg (26-34); Mean Corpuscular Volume 90 fL (80-100); Monocytes Percent Auto 9.7 % (0.0-11.0); Neutrophils Percent Auto 50.3 % (42.0-72.0); Platelet Count* 182 K/uL (140-440); RDW Coefficient of Variation % 14.3 % (11.5-15.5); Red Blood Count 4.51 m/uL (4.30-5.90); White Blood Count* 5.77 K/uL (4.50-11.00)
[2025-02-11 09:29] LABS: Slide Review Reflex No
--- OUTSIDE RECORDS SUMMARY | 2025-02-11 09:47 | XMS_ITS | Clinical Summary ---
Author Organization [facility] Address [address] , [address] [place] [address] Phone Care Team Providers Care Leasing Sales Consultant Name Role Phone Brittany Yu Unavailable Conditions or Problems Problem Name Problem Code Onset Date Status Entry Date Provider Comment Standard Description Annotate VERTIGO 253888694 (SNOMED CT) Resolved Alex High MD Vertigo Neuropathic pain [id number] (SNOMED CT) Active Alex High MD Neuropathic pain Neuropathy 870693650 (SNOMED CT) Active Alex High MD Neuropathy VERTIGO, BENIGN PAROXYSMAL POSITION 230967680 (SNOMED CT) Active Charanjit Roach MD Benign paroxysmal positional vertigo HEARING LOSS, NOS 22374741 (SNOMED CT) Active Charanjit Roach MD Hearing loss VERTIGO 639326819 (SNOMED CT) Removed Charanjit Roach MD Vertigo Medications Medication Instructions Start Date Stop Date Generic Name [facility] Provider NORTRIPTYLINE HCL 10 MG CAPS 2 capsule by mouth as directed : 2 caps or 20 mg per night; then increase by 1 cap or 10 mg/night every 2 weeks until maximum 7 caps or 70 mg/night or until pain controlled 12/10 nortriptyline 06442572322 Alex High MD NORTRIPTYLINE HCL 10 MG CAPS Take 6 capsule by mouth every night at bedtime maximum 7 caps or 70 mg/night nortriptyline 06840973795 Alex High MD VARENICLINE TARTRATE 1 MG TABS Take 1 mg by mouth twice a day 0 varenicline 48098948609 Alex High MD MOUNJARO 7.5 MG/0.5ML SOAJ Inject 7.5 mg subcutaneously once a week 0 tirzepatide 08049203745 Alex High MD ALLOPURINOL 300 MG TABS Take 1 tablet by mouth once a day allopurinol 19680164629 Alex High MD vitamin e 400 unit capsule Take 1 capsule by mouth once a day 0 vitamin e 400 unit capsule Alex High MD vitamin B complex (B-COMPLEX VITAMIN) tablet Take 1 tablet by mouth once a day B-COMPLEX VITAMIN Alex High MD MOUNJARO 2.5 MG/0.5ML SOAJ Inject 2.5 mg subcutaneously once a week 0 tirzepatide 83659741806 Alex High MD MOUNJARO 10 MG/0.5ML SOAJ Inject 10 mg subcutaneously once a week 0 tirzepatide 85427864901 Alex High MD TAMSULOSIN HCL 0.4 MG CAPS Take 1 capsule by mouth once a day tamsulosin 24805765893 Alex High MD LISINOPRIL 20 MG TABS Take 1 tablet by mouth once a day lisinopril 61060672326 Alex High MD MOUNJARO 5 MG/0.5ML SOAJ Inject 5 mg subcutaneously once a week 0 tirzepatide 90419670237 Alex High MD regadenoson (LEXISCAN) injection 0.4 mg 0.4 mg intravenously LEXISCAN Alex High MD ASPIRIN LOW DOSE 81 MG TBEC Take 1 tablet by mouth once a day aspirin 23027557315 Alex High MD INDOMETHACIN 50 MG CAPS Take 1 capsule by mouth three times a day as needed 0/09 indomethacin 53605487094 Alex High MD FAMOTIDINE 20 MG TABS Take 1 tablet by mouth twice a day famotidine 04387503152 Alex High MD ATORVASTATIN CALCIUM 20 MG TABS Take 1 tablet by mouth every night atorvastatin 35352072621 Alex High MD MECLIZINE HCL (MECLIZINE HCL) 25 MG TABS twice a day as needed 0 MECLIZINE HCL Alex High MD PREGABALIN 150 MG CAPS Take 1 capsule by mouth twice a day pregabalin 07120644722 Alex High MD MOUNJARO 15 MG/0.5ML SOAJ Inject 15 mg subcutaneously once a week 0/ tirzepatide 08888823379 Alex High MD PREGABALIN 100 MG CAPS Take 1 capsule by mouth twice a day 0 pregabalin 52231167376 Alex High MD cholecalciferol (VITAMIN D3) 2,000 unit capsule Take 1 capsule by mouth once a day VITAMIN D3 Alex High MD MOUNJARO 12.5 MG/0.5ML SOAJ Inject 12.5 mg subcutaneously once a week 0/09 tirzepatide 66696321736 Alex High MD ALPHA-LIPOIC ACID 600 MG TABS 1/2 tablet by mouth twice a day alpha lipoic acid 26901127604 Alex High MD PREGABALIN 100 MG CAPS Take 1 capsule by mouth every night at bedtime as needed for pain at night with the current 150 mg 2x per day pregabalin 31069149861 Alex High MD NORTRIPTYLINE HCL 10 MG CAPS 2 capsule by mouth as directed : 2 caps or 20 mg per night; then increase by 1 cap or 10 mg/night every 2 weeks until maximum 7 caps or 70 mg/night or until pain controlled 12/10 nortriptyline 88028965306 Alex High MD vitamin e 400 unit capsule Take 1 capsule by mouth once daily. vitamin e 400 unit capsule QIEUSER QIEUSER vitamin B complex (B-COMPLEX VITAMIN) tablet Take 1 tablet by mouth once daily. B-COMPLEX VITAMIN QIEUSER QIEUSER VARENICLINE TARTRATE 1 MG TABS Take 1 mg by mouth two times daily with meals. 0 varenicline 01780170227 QIEUSER QIEUSER TRAZODONE HCL 50 MG TABS TAKE ONE OR TWO TABLETS BY MOUTH AT BEDTIME trazodone 45981171155 QIEUSER QIEUSER MOUNJARO 7.5 MG/0.5ML SOAJ Inject 7.5 mg subcutaneous once weekly. 11/28 tirzepatide 44465368402 QIEUSER QIEUSER MOUNJARO 5 MG/0.5ML SOAJ Inject 5 mg subcutaneous once weekly. 11/28 tirzepatide 31425707816 QIEUSER QIEUSER MOUNJARO 2.5 MG/0.5ML SOAJ Inject 2.5 mg subcutaneous once weekly. 2 tirzepatide 70630050250 QIEUSER QIEUSER MOUNJARO 15 MG/0.5ML SOAJ Inject 15 mg subcutaneous once weekly. 11/28 tirzepatide 99809411851 QIEUSER QIEUSER MOUNJARO 12.5 MG/0.5ML SOAJ Inject 12.5 mg subcutaneous once weekly. 11/28 tirzepatide 11966513045 QIEUSER QIEUSER TAMSULOSIN HCL 0.4 MG CAPS Take 1 Capsule (0.4 mg) by mouth once daily after a meal 0 tamsulosin 96956410841 QIEUSER QIEUSER regadenoson (LEXISCAN) injection 0.4 mg 0.4 mg Intravenous LEXISCAN QIEUSER QIEUSER PREGABALIN 150 MG CAPS Take 1 Capsule (150 mg) by mouth two times daily. 0/ pregabalin 52791815446 QIEUSER QIEUSER PREGABALIN 100 MG CAPS TAKE ONE CAPSULE BY MOUTH TWICE DAILY 0/ pregabalin 16659608656 QIEUSER QIEUSER MOUNJARO 10 MG/0.5ML SOAJ Inject 10 mg subcutaneous once weekly. 2/06 tirzepatide 94560043743 QIEUSER QIEUSER LISINOPRIL 20 MG TABS TAKE ONE TABLET BY MOUTH ONE TIME DAILY 0 lisinopril 07992622991 QIEUSER QIEUSER INDOMETHACIN 50 MG CAPS TAKE ONE CAPSULE BY MOUTH THREE TIMES DAILY WITH MEALS NEEDED FOR GOUT. 0/ indomethacin 90886206797 QIEUSER QIEUSER FAMOTIDINE 20 MG TABS TAKE ONE TABLET BY MOUTH TWICE DAILY 0/09 famotidine 47541338258 QIEUSER QIEUSER cholecalciferol (VITAMIN D3) 2,000 unit capsule Take 1 capsule by mouth once daily. 0/09 VITAMIN D3 QIEUSER QIEUSER ATORVASTATIN CALCIUM 20 MG TABS Take 1 Tablet (20 mg) by mouth at bedtime. 0/09 atorvastatin 29622312488 QIEUSER QIEUSER ATENOLOL 50 MG TABS Take 1 tablet (50mg) in the morning and 1/2 tablet (25mg) in the evening atenolol 36722654368 QIEUSER QIEUSER ASPIRIN LOW DOSE 81 MG TBEC Take 1 tablet by mouth once daily with a meal. 0/09 aspirin 58784659473 QIEUSER QIEUSER ALLOPURINOL 300 MG TABS Take 1 Tablet (300 mg) by mouth once daily. 0/09 allopurinol 62325721735 QIEUSER QIEUSER MECLIZINE HCL 25 MG TABS bid prn 0/09 MECLIZINE HCL 17827491541 Charanjit Roach MD Medications Administered No information [...] Detail Appointment 03:00 PM Ellie Vann PA-C, [address], [address], [place], [address], Pending order Follow up with N eurologist [...] Patient Instructions ORDERS EMG bilateral low ext CPT-33410 Nerve Conduction 7-8 studies CPT-80403 EMG with NCS (5+ muscles) - 1 limb CPT-76537 EMG with NCS (4 or fewer muscles) - 1 lopez b ORDERS Patient Instructions [facility] [email or web address] Documentation of current medicatio ns Vital Signs Date Name Value Unit Description Heart Rate 68 /min pulse rate Immunizations No information available. Advance Directives No information available.
--- OUTSIDE RECORDS SUMMARY | 2025-02-11 09:47 | XMS_ITS ---
Author Organization [facility] Address [address] [place] [address] , [address] [place] [address] Phone Care Team Providers Care Funding Coordinator Name Role Phone Soo DORMAN, Ellie Myers [...] Appointment 03:00 PM Ellie Vann PA-C, [address], [address], [place], [address], Pending order Follow up with N eurologist [...]
--- OUTSIDE RECORDS SUMMARY | 2025-02-11 09:47 | XMS_ITS | Clinical Summary ---
Author Organization [facility] Address [address] [place] [address] Care Team Providers Care Electronics Teacher Name Role Phone Alpa Lester MD Primary [...] Description 02/04/2025 4:00 PM CDT Ancillary Procedure [facility] [address] [facility] [place] [address] 02/04/2025 Travel 01/11/2025 Refill [facility] [address] [facility] [place] [address] Alpa Lester MD Refill Request (Atorvastatin, Allopurinol, Famotidine, Tamsulosin) 01/08/2025 Telephone [facility] [address] [facility] [place] [address] Alpa Lester MD Imaging from Last 3 Months Immunizations Immunization Administration Dates Next Due COVID-19 vaccine ([employer] 30mcg/0.3mL) PF, MDV 01/15/2021,12/25/2020 Influenza, High-dose Quadriv [...] approx age [age] Heart Disease Mother [place] at 62 Cancer-colon Neg. 1 Diabetes Neg. [...] on file Legal Sex Male 5:51 AM CONTENT ADMINISTRATOR Gender Identity Not on file Sexual Orientation [...] IVC WITH DUPLEX Routine 12/26/2022 10:39 AM CONTENT ADMINISTRATOR Abdominal aortic aneurysm (AAA) without rupture, unspecified [...] - 199 mg/dL 02/16/2024 2:15 PM CDT [facility] Comment: Cholesterol, Total Reference Ranges Desirable <200 mg/dL Borderline 200-239 mg/dL High >=240 mg/dL TRIGLYCERIDES 220(H) <150 mg/dL 02/16/2024 2:15 PM CDT [facility] HDL CHOLESTEROL 40(L) >40 mg/dL 2:15 PM CDT [facility] NON-HDL CHOLESTEROL 76 <145 mg/dl 02/16/2024 2:15 PM CDT [facility] CHOL/HDL RATIO 2.90 <4.50 02/16/2024 2:15 PM CDT [facility] LDL CHOLESTEROL 32 <=130 mg/dL 02/16/2024 2:15 PM CDT [facility] VLDL CHOLESTEROL 44(H) <=30 mg/dL 02/16/2024 2:15 PM CDT [facility] PROVIDER ORDERED STATUS RANDOM 02/16/2024 2:15 PM CDT [facility] Blood BLOOD SPECIMEN / Unknown Venipuncture / Unknown 02/15/2024 4:41 PM CDT 02/15/2024 4:42 PM CDT us Alpa Lester MD CHEMISTRY Final Result Performing Organization Address City/State/[facility] Co de Phone Number [facility] [address] [place] [address], [place] * US AORTA ILIACS IVC WITH DUPLEX (12/26/2022 10:39 AM CONTENT ADMINISTRATOR) Anatomical Region Laterality Modality AORTA, Abdomen Ultrasound 12/26/2022 9:58 AM CONTENT ADMINISTRATOR Narrative 12/26/2022 2:01 PM CONTENT ADMINISTRATOR VASCULAR ULTRASOUND REPORT RODNEY YU : 1950 Study Date: 12/26/2022 9:58:00 AM Age: 72 years Tech: PMK Gender: M Referring MD: ALPA LESTER Site: [facility] Study performed: Aorta Indication for [...] biphasic + +--------+-------+ +---------+ Elizabeth Rubalcava MD. [email or web address] Electronically signed on 12/26/2022 2:01:15 PM This study was performed and interpreted by a service accredited by the Intersocietal Accreditation Commission (IAC/Vascular), [email or web address].org/vascular Report generated by [facility]. Final Procedure Note Elizabeth Rubalcava MD - 12/26/2022 VASCULAR ULTRASOUND REPORT RODNEY YU : 1950 Study Date: 12/26/2022 9:58:00 AM Age: 72 years Tech: PMK Gender: M Referring MD: ALPA LESTER Site: [facility] Study performed: Aorta Indication for [...] theIntersocietal Accreditation Commission (IAC/Vascular),[email or web address]/vascular Report generated by [facility]. Final us Alpa Lester MD Final [...] there are any questions, please contact the crop duster. Moderate Sedation: Moderate (conscious) sedation was administered [...] 10:23 AM Procedure Code(s): --- Professional --- 01424, Colonoscopy, flexible; diagnostic, including collection of specimen(s) bybrushing or washing, when performed (separateprocedure) Diagnosis Code(s): --- Professional --- Z12.11, Encounter for screening formalignant neoplasm of colon K57.30, Diverticulosis of large intestine without perforation or abscess withoutbleeding CPT copyright 2020 [employer]. All rights reserved. The codes documented in this report are preliminary and upon wood handler reviewmay be revised to meet current compliance requirements. Scope In: 10:54:29 AM Scope Withdrawal Time 0 hours 7 minutes 4 seconds Scope Out: 11:09:34 AM us Jeovanny Mckeon MD PROCEDURE ORD Final Res ult * ANTI HCV [98636.2] (05/01/2014 7:15 AM CDT) HEPATITIS C ANTIBODY Non-Reacti ve Non-Reacti ve 05/01/2014 3:28 PM CDT [facility] Blood specimen (specimen) BLOOD SPECIMEN / Unknown Venipuncture / Unknown 05/01/2014 7:15 AM CDT 05/01/2014 7:15 AM CDT Narrative [facility] - 05/01/2014 3:28 PM CDT Antibodies to HCV not detected; does not exclude the possibility of exposure to HCV. us Alpa Lester MD SEND OUTS Final Result [facility] [address] [place] [address], from Last 3 Months or Most Recently Relevant to Health Maintenance Insurance [employer] PB ONLY MEDICARE PART B HB ONLY MEDICA PRIME SOLUTION HB MEDICARE PART A HB ONLY Advance Directives Documents on File Type Date Recorded Patient Production Helper Expl anation Healthcare Directive 05/07/2024 11:12 AM * Full Code (Latest Code Status on File) Date Activated Date Inactivated Comments 12/23/2015 7:04 AM 12/23/2015 12:23 PM * Full Code Date Activated Date Inactivated Comments 11/04/2015 8:11 AM 11/05/2015 12:19 PM * Full Code Date Activated Date Inactivated Comments 07/06/2015 7:09 AM 07/06/2015 2:52 PM Care Teams Electronics Teacher Relationship Specialty Start Date End Date Alpa Lester MD [address] [place] [address] [facility] - General 04/11/06
[2025-02-11 09:49] LABS: Chloride* 103 mmol/L (96-114); Sodium* 138 mmol/L (135-149)
[2025-02-11 09:50] LABS: Potassium* 4.3 mmol/L (3.6-5.1)
[2025-02-11 09:52] LABS: Blood Urea Nitrogen* 16 mg/dL (7-30); Carbon Dioxide* 25 mmol/L (20-32); Creatinine* 0.9 mg/dL (0.5-1.5); Est. Creatinine Clearance* 74.35; Estimated Glomerular Filt Rate 90 ml/min
[2025-02-11 09:53] LABS: Anion Gap 10 mEq/L (7-15); Calcium* 8.9 mg/dL (8.4-10.6); Glucose* 129 mg/dL (60-115); Magnesium* 1.5 mg/dL (1.5-2.6)
[2025-02-11 09:55] LABS: D Dimer Quantitative* 0.43 ug/ml (0.00-0.50)
[2025-02-11 10:06] LABS: Troponin I* < 0.01 ng/mL (0.01-0.04)
[2025-02-11 10:07] LABS: PCR FLU A Negative PCR FLU A (Negative); PCR FLU B Negative PCR FLU B (Negative); PCR RSV Negative PCR RSV (Negative); SARS PCR* Negative SARS-CoV-2 (Negative)
[2025-02-11 12:27] LABS: Troponin I* < 0.01 ng/mL (0.01-0.04)
== END 2025-02-11 13:03 | disposition home or self-care (01) ==
PROVIDERS: Emergency Provider Student in an Organized Health Care Education/Training Program; PCP Family Medicine
DX: R07.89 Other chest pain (principal)
CPT/HCPCS: 36415; 71046; 80048; 83735; 83880; 84484; 85025; 85379; 87631; 93005; 99284; 99285